=== PATIENT | male | born 1995 | race African-American/Black ===

== ENCOUNTER 2017-08-20 10:12 | Emergency (ER) | payer SELFPAY ==
[~2017-08-20] VITALS: Ht 167.6 cm; Wt 65.8 kg
--- NOTE | 2017-08-20 11:01 | Emergency Room Report ---
History of Present Illness General Chief Complaint: General Complaint Source: Patient Present Illness HPI Patient presents with rash. This has been going on for 3-4 days. It is present on arms, trunk and legs. Some involvement of face. Itching and some small raised bumps. No fevers. No erythema. No h/o allergies. No h/o eczema. Use of hydrocortisone cream with some help but running out. Seemed to come up with the heat. No URI sy, dyspnea, chest pain, NVD, dysuria, joint pain. Has acne which has been stable. Allergies: Coded Allergies: No Known Allergies (Unverified , 08/20/17) Patient History Past Medical History: see triage record Social History: Reports: smoking Social History Narrative cook Reviewed Nursing Documentation: PMH: Agreed; PSxH: Agreed Nursing Documentation-PMH Past Medical History: No Stated History Review of Systems All Other Systems: negative except mentioned in HPI Physical Exam Vital Signs Date Time Temp Pulse Resp B/P (MAP) Pulse Ox O2 Delivery O2 Flow Rate FiO2 08/20/17 10:18 98.1 62 18 131/72 99 Room Air 98.1 Sp02 EP Interpretation: reviewed, normal General Appearance: well appearing, no apparent distress Head: normocephalic, atraumatic Eyes: bilateral eye normal inspection, bilateral eye PERRL ENT: hearing grossly normal, normal pharynx, no angioedema, normal voice, moist mucus membranes Neck: full range of motion, supple Respiratory: lungs clear, normal breath sounds, no respiratory distress, speaking full sentences Cardiovascular #1: regular rate, rhythm Cardiovascular #2: 2+ radial (R) Gastrointestinal: normal inspection Genitourinary: no CVA tenderness Musculoskeletal: back normal, digits/nails normal, gait/station normal, normal range of motion Neurologic: alert, oriented x3, normal gait, grossly normal Psychiatric: mood/affect normal Skin: other - morbiliform rash, no erythema, centripital. Acne Medical Decision Making Diagnostic Impression: Primary Impression: Heat rash ER Course Patient with rash for 3-4 days. DDx: allergy, hives, heat rash, folliculitis amongst others. Timing, symptoms and distribution most consistent with heat rash. No labs indicated. Topical treatment and benadryl. Patient stable for outpatient observation and treatment. Last Vital Signs Date Time Temp Pulse Resp B/P (MAP) Pulse Ox O2 Delivery O2 Flow Rate FiO2 7/13/18 11:06 98.1 18 131/72 99 Room Air 98.1 08/20/17 10:18 62 Status: improved Disposition: HOME, SELF-CARE Condition: Stable Scripts Diphenhydramine Hcl* (BENADRYL*) 25 Mg Capsule 25 MG ORAL Q6H PRN for Itching, #14 CAP Prov: Scottie Beckwith M.D. 08/20/17 Hydrocortisone/Aloe Vera 1%* (HYDROCORTISONE-ALOE 1% CREAM*) Y Cr 1 APPLIC TOPIC BID PRN for Itching, #30 GM 1 Refill Prov: Scottie Beckwith M.D. 08/20/17 Referrals: NOT CHOSEN GABRIEL/,REFERRING (PCP) Scottie Beckwith M.D. Aug 20, 2017 11:01
[2017-08-20] MEDS ORDERED: HYDROCORTISONE-30 GM TOPIC (11:03)
[2017-08-20] MEDS ORDERED: BENADRYL25 MG ORAL (11:03)
[2017-08-20 11:06] VITALS: BP 131/72
== END 2017-08-20 11:06 | disposition home or self-care (01) ==
LOC: EMR 10:45
DX: L74.0 Miliaria rubra (principal); F17.200 Nicotine dependence, unspecified, uncomplicated
CPT/HCPCS: 99284